=== PATIENT | male | born 1990 | race Caucasian/White ===

== ENCOUNTER 2018-09-20 16:12 | Emergency (ER) | payer OTHER ==
[~2018-09-20] VITALS: Ht 188 cm; Wt 90.7 kg
--- NOTE | 2018-09-20 16:50 | Emergency Room Report ---
History of Present Illness General Chief Complaint: Multiple Trauma/Fall Source: Patient Present Illness HPI 28-year-old male presents to the emergency department complaining of need for return to work exam. Patient reports status post syncopal episode 1 week ago while at work. Patient describes that he stood up, felt dizzy, heard ringing in his ears, and synopsized. Patient states that he subsequently hit his head on a pole. Patient reports recalling events leading up to syncopal episode as well as immediately after. Patient denies changes in memory or speech she denies headache, dizziness, changes in vision, chest pain or palpitations. Patient states this is the first occurrence and he denies significant past medical history. Patient states that no recurrent episode has happened since. Allergies: Coded Allergies: No Known Allergies (Unverified , 09/20/18) Patient History Past Medical History: see triage record Past Surgical History: none Pertinent Family History: none Reviewed Nursing Documentation: PMH: Agreed; PSxH: Agreed Nursing Documentation-PMH Past Medical History: No Stated History Review of Systems All Other Systems: negative except mentioned in HPI Physical Exam Vital Signs Date Time Temp Pulse Resp B/P (MAP) Pulse Ox O2 Delivery O2 Flow Rate FiO2 09/20/18 16:15 98.4 83 16 126/85 98 Room Air Sp02 EP Interpretation: reviewed, normal General Appearance: no apparent distress, alert, GCS 15, non-toxic Head: normocephalic, atraumatic Eyes: bilateral eye normal inspection, bilateral eye PERRL ENT: hearing grossly normal, normal voice Neck: full range of motion Respiratory: lungs clear, normal breath sounds, speaking full sentences Cardiovascular #1: regular rate, rhythm Musculoskeletal: back normal, gait/station normal, normal range of motion, non- tender Neurologic: alert, oriented x3, responsive, motor strength/tone normal, sensory intact, normal gait, speech normal, grossly normal Psychiatric: judgement/insight normal Skin: normal color, no rash, warm/dry, well hydrated Medical Decision Making PA Attestation Dr. griggs is my supervising Physician whom patient management has been discussed with. Diagnostic Impression: Primary Impression: Encounter for medical screening examination Additional Impression: Hx of syncope ER Course 28-year-old male presents to the emergency department complaining of need for return to work exam. Patient reports status post syncopal episode 1 week ago while at work. Patient describes that he stood up, felt dizzy, heard ringing in his ears, and synopsized. Patient states that he subsequently hit his head on a pole. Patient reports recalling events leading up to syncopal episode as well as immediately after. Patient denies changes in memory or speech she denies headache, dizziness, changes in vision, chest pain or palpitations. Patient states this is the first occurrence and he denies significant past medical history. Patient states that no recurrent episode has happened since. Ddx considered but are not limited to AMS, ETOH, infection, Trauma/Fall, CVA, NV , Psych, acute head injury, concussion, dysrhythmia Vital signs: are WNL, pt. is afebrile H&PE are most consistent with Normal limited PE/ and normal MSE- no acute injury or disease noted at this time. pt. is NAD, NON-toxic, able to answer questions appropriately, pt. is oriented, and no signs of trauma or focal neurological deficits. ORDERS: none required at this time, the diagnosis is clinical ED INTERVENTIONS: None required at this time, pt is allowed to rest while next of Kin or family members are contacted. Pt. is stable for close outpatient follow up. DISCHARGE: At this time pt. is stable for d/c to home. Will provide printed patient care instructions, and any necessary prescriptions. Care plan and follow up instructions have been discussed with the patient prior to discharge. Last Vital Signs Date Time Temp Pulse Resp B/P (MAP) Pulse Ox O2 Delivery O2 Flow Rate FiO2 09/20/18 16:15 98.4 83 16 126/85 98 Room Air Disposition: HOME, SELF-CARE Condition: Stable Scripts No Active Prescriptions or Reported Meds Departure Forms: Return to Work Return to Work Date: Sep 21, 2018 Work Restrictions: None Return to Full Activity: Sep 21, 2018 Patient Instructions: Medical Screening Exam Additional Instructions: Take medications as directed. Follow up with a Primary Care Provider in 3-5 days, even if your symptoms have resolved. --Please review list of primary care clinics, if you do not already have a primary care provider Return sooner to ED if new symptoms occur, or current symptoms become worse. - Please note that this Emergency Department Report was dictated using [employer] and family services worker technology software, occasionally this can lead to erroneous entry secondary to interpretation by the dictation equipment. Susanne Cohen Sep 20, 2018 16:50
[2018-09-20 17:18] VITALS: BP 126/85
[2018-09-20 17:21] VITALS: BP 126/85
== END 2018-09-20 17:20 | disposition home or self-care (01) ==
LOC: EMR 16:45
DX: Z13.89 Encounter for screening for other disorder (principal); R55 Syncope and collapse
CPT/HCPCS: 99282